=== PATIENT | female | born 1935 | race Caucasian/White ===

== ENCOUNTER 2019-09-22 17:05 | Emergency (ER) | payer MEDICARE, MEDICAID ==
[~2019-09-22] VITALS: Ht 162.6 cm; Wt 79.5 kg
[~2019-09-22 17:05] MED LIST: AMLO5TAB16 PO; ASPI81TA52 PO; ATOR20TA66 PO; CHOL10008 PO; CITA10TA9 PO; INSU100V12 SQ; LACT1CAP26 PO; LOSA50TA3 PO; METH1TAB32 PO; METO-384 PO; METO-395 PO
[2019-09-22] MEDS ORDERED: TETanus/Pertussis (Acell)/Diphther VAC/PF (Tdap-Adult) 0.5ml syringe IMVAC ONE (17:25)
--- NOTE | 2019-09-22 17:32 | NUR ---
Pt gave permission to give her grandson information about her care. He will also be the one who can come pick her up. His name is Donavan Max and his number is [phone].
--- NOTE | 2019-09-22 17:41 | NUR ---
Placed wet gauze on laceration to loosen up the scab per Dr Stover.
[2019-09-22 18:34] VITALS: BP 158/60
== END 2019-09-22 18:37 | disposition home or self-care (01) ==
LOC: ER 17:06
DX: S01.111A Laceration without foreign body of right eyelid and periocular area, initial encounter (principal); R51 Headache; Z91.81 History of falling; I10 Essential (primary) hypertension; E11.9 Type 2 diabetes mellitus without complications; F41.9 Anxiety disorder, unspecified; F32.9 Major depressive disorder, single episode, unspecified; Z90.49 Acquired absence of other specified parts of digestive tract; Z90.89 Acquired absence of other organs; Z98.890 Other specified postprocedural states; Z60.2 Problems related to living alone; Z86.73 Personal history of transient ischemic attack (TIA), and cerebral infarction without residual deficits; Z79.4 Long term (current) use of insulin; Z79.899 Other long term (current) drug therapy; W01.198A Fall on same level from slipping, tripping and stumbling with subsequent striking against other object, initial encounter; Y93.89 Activity, other specified; Y92.010 Kitchen of single-family (private) house as the place of occurrence of the external cause
CPT/HCPCS: 70450; 72125; 90471; 90715; 99285

== ENCOUNTER 2020-01-20 11:35 | Emergency (ER) | payer MEDICARE, MEDICAID ==
[~2020-01-20] VITALS: Ht 162.6 cm; Wt 71.9 kg
--- NOTE | 2020-01-20 11:58 | NUR ---
PT'S SERVICE LINE LAYER: SREEKANTH VALENTE FREEZEN: [phone]
--- NOTE | 2020-01-20 11:59 | NUR ---
PT'S TRANSPORTATION HOME WILL BE HER GRANDSONADALBERTO:[phone]; OR SON DARRIN:[phone]
[2020-01-20 12:43] LABS: ALANINE AMINOTRANSFERASE 82 U/L (12-78); ALBUMIN 3.5 G/DL (3.4-5.0); ALKALINE PHOSPHATASE 143 IU/L (46-116); ANION GAP 7 (8-16); ASPARTATE AMINO TRANSFERASE 14 U/L (10-37); BILIRUBIN,TOTAL 0.4 MG/DL (0.1-1.0); BLOOD UREA NITROGEN 27 MG/DL (7-18); BUN/CREATININE RATIO 13.1 (6.6-38.0); CALCIUM 9.3 MG/DL (8.5-10.1); CHLORIDE 105 MMOL/L (99-107); CREATININE 2.06 MG/DL (0.40-0.90); GLUCOSE 150 MG/DL (70-104); LIPASE 82 U/L (73-393); POTASSIUM 3.9 MMOL/L (3.5-5.1); SODIUM 143 MMOL/L (135-145); TOTAL CARBON DIOXIDE 31.4 MMOL/L (24-32); TOTAL PROTEIN 6.9 G/DL (6.4-8.2); eGFR 23 ML/MIN
[2020-01-20 13:49] LABS: BASOPHILS # (AUTO) 0.1 X10'3 (0-0.2); BASOPHILS % (AUTO) 0.7 % (0-1); EOSINOPHILS # (AUTO) 0.4 X10'3 (0-0.9); EOSINOPHILS % (AUTO) 5.5 % (0-6); HEMATOCRIT 36.6 % (35.0-45.0); HEMOGLOBIN 11.6 g/dl (12.0-16.0); LYMPHOCYTES # (AUTO) 0.6 X10'3 (1.1-4.8); LYMPHOCYTES % (AUTO) 8.1 % (21-51); MEAN CORPUSCULAR HEMOGLOBIN 27.3 PG (27.0-31.0); MEAN CORPUSCULAR HGB CONC 31.8 g/dL (33.0-36.5); MEAN CORPUSCULAR VOLUME 85.7 FL (78-98); MEAN PLATELET VOLUME 9.2 FL (7.4-10.4); MONOCYTES # (AUTO) 0.5 X10'3 (0-0.9); MONOCYTES % (AUTO) 6.6 % (2-12); NEUTROPHILS # (AUTO) 6.1 X10'3 (1.8-7.7); NEUTROPHILS % (AUTO) 79.1 % (42-75); PLATELET COUNT 230 X10'3 (140-440); RED BLOOD COUNT 4.26 X10'6 (4.20-5.60); RED CELL DISTRIBUTION WIDTH 15.9 % (11.5-14.5); WHITE BLOOD COUNT 7.8 X10'3 (4.5-11.0)
[2020-01-20 15:27] LABS: CLARITY,URINE SLIGHTLY CLOUDY (Clear); COLOR,URINE YELLOW (Yellow); GLUCOSE, URINE NEGATIVE (Neg); KETONES,URINE NEGATIVE (Neg); LEUKOCYTE ESTERASE ,URINE NEGATIVE (Neg); NITRITES, URINE NEGATIVE (Neg); OCCULT BLOOD,URINE NEGATIVE (Neg); PH,URINE 5.5 (4.8-8.0); PROTEIN,URINE TRACE mg/dl (Neg); UROBILINOGEN,URINE 0.2 E.U/dL (0.2-1.0)
[2020-01-20 15:28] LABS: UA COLLECTION TYPE STRAIGHT CATH
[2020-01-20 15:42] LABS: HYALINE CASTS 0-3 /LPF (NEGATIVE); MUCUS STRANDS FEW /LPF (Neg); SQUAMOUS EPITHELIAL CELL,UR FEW /LPF (FEW); TRANSITIONAL EPI CELLS,URINE FEW /HPF
[2020-01-20 15:43] LABS: BACTERIA,URINE NONE SEEN /HPF (Neg); RBC,URINE 0-2 /HPF (0-2); RENAL CELLS, URINE FEW /HPF; WBC,URINE 0-4 /HPF (0-4)
[2020-01-20 16:28] VITALS: BP 164/68
== END 2020-01-20 16:25 | disposition home or self-care (01) ==
LOC: ER 11:35
DX: N18.9 Chronic kidney disease, unspecified (principal); R51 Headache; R74.8 Abnormal levels of other serum enzymes; E72.9 Disorder of amino-acid metabolism, unspecified; R11.2 Nausea with vomiting, unspecified; R19.7 Diarrhea, unspecified; I10 Essential (primary) hypertension; E11.9 Type 2 diabetes mellitus without complications; F41.9 Anxiety disorder, unspecified; F32.9 Major depressive disorder, single episode, unspecified; Z86.73 Personal history of transient ischemic attack (TIA), and cerebral infarction without residual deficits; Z90.49 Acquired absence of other specified parts of digestive tract; Z90.89 Acquired absence of other organs; Z98.890 Other specified postprocedural states; Z79.4 Long term (current) use of insulin; Z79.899 Other long term (current) drug therapy
CPT/HCPCS: 36415; 70450; 80053; 81001; 83605; 83690; 84484; 85025; 93005; 99285

== ENCOUNTER → 2020-06-05 | Emergency (ER) | payer MEDICARE, MEDICAID ==
[~2020-06-05] VITALS: Ht 165.1 cm; Wt 66.0 kg
[~2020-06-05] MED LIST changes: -AMLO5TAB16 PO; +ASPI-611 PO; -ASPI81TA52 PO; -ATOR20TA66 PO; +ATOR40TA72 PO; -CITA10TA9 PO; +DILT180C66 PO; -LACT1CAP26 PO; +LEVO250T58 PO; +LINA5TAB4 PO; +LISI10TA4 PO; -LOSA50TA3 PO; -METO-384 PO; -METO-395 PO; +PANT40TA54 PO; +TRIA0.1232 PO; +normal saline 1000ml 1,000 ML IV ONE
[2020-06-05 17:21] LABS: BASOPHILS % (AUTO) 0.4 % (0-1); EOSINOPHILS # (AUTO) 0.5 X10'3 (0-0.9); EOSINOPHILS % (AUTO) 5.5 % (0-6); HEMATOCRIT 33.6 % (35.0-45.0); HEMOGLOBIN 10.8 g/dl (12.0-16.0); LYMPHOCYTES # (AUTO) 0.7 X10'3 (1.1-4.8); LYMPHOCYTES % (AUTO) 8.3 % (21-51); MEAN CORPUSCULAR HEMOGLOBIN 26.7 PG (27.0-31.0); MEAN CORPUSCULAR VOLUME 83.4 FL (78-98); MEAN PLATELET VOLUME 9.2 FL (7.4-10.4); MONOCYTES # (AUTO) 0.8 X10'3 (0-0.9); MONOCYTES % (AUTO) 8.6 % (2-12); NEUTROPHILS # (AUTO) 6.9 X10'3 (1.8-7.7); NEUTROPHILS % (AUTO) 77.2 % (42-75); PLATELET COUNT 205 X10'3 (140-440); RED BLOOD COUNT 4.03 X10'6 (4.20-5.60); RED CELL DISTRIBUTION WIDTH 15.4 % (11.5-14.5); WHITE BLOOD COUNT 8.9 X10'3 (4.5-11.0)
[2020-06-05 17:28] LABS: ALANINE AMINOTRANSFERASE 16 U/L (12-78); ALBUMIN/GLOBULIN RATIO 0.9 (1.1-1.5); ALKALINE PHOSPHATASE 89 IU/L (46-116); ANION GAP 11 (8-16); ASPARTATE AMINO TRANSFERASE 11 U/L (10-37); BILIRUBIN,TOTAL 0.3 MG/DL (0.1-1.0); BLOOD UREA NITROGEN 44 MG/DL (7-18); BUN/CREATININE RATIO 17.4 (6.6-38.0); CALCIUM 9.2 MG/DL (8.5-10.1); CHLORIDE 106 MMOL/L (99-107); CREATININE 2.53 MG/DL (0.40-0.90); GLUCOSE 113 MG/DL (70-104); POTASSIUM 3.6 MMOL/L (3.5-5.1); SODIUM 143 MMOL/L (135-145); TOTAL CARBON DIOXIDE 25.7 MMOL/L (24-32); TOTAL PROTEIN 6.5 G/DL (6.4-8.2); eGFR 18 ML/MIN
[2020-06-05 18:18] LABS: CLARITY,URINE SLIGHTLY CLOUDY (Clear); COLOR,URINE STRAW (Yellow); GLUCOSE, URINE NEGATIVE (Neg); KETONES,URINE NEGATIVE (Neg); LEUKOCYTE ESTERASE ,URINE NEGATIVE (Neg); NITRITES, URINE NEGATIVE (Neg); OCCULT BLOOD,URINE NEGATIVE (Neg); PH,URINE 5.5 (4.8-8.0); PROTEIN,URINE TRACE mg/dl (Neg); UROBILINOGEN,URINE 0.2 E.U/dL (0.2-1.0)
[2020-06-05 18:21] LABS: UA COLLECTION TYPE STRAIGHT CATH
[2020-06-05 18:24] LABS: HYALINE CASTS 0-3 /LPF (NEGATIVE); SQUAMOUS EPITHELIAL CELL,UR MODERATE /LPF (FEW)
[2020-06-05 18:25] LABS: MUCUS STRANDS NONE SEEN /LPF (Neg); RENAL CELLS, URINE FEW /HPF; TRANSITIONAL EPI CELLS,URINE FEW /HPF
[2020-06-05 18:26] LABS: AMORPHOUS URATES 1+; BACTERIA,URINE NONE SEEN /HPF (Neg); RBC,URINE 0-2 /HPF (0-2)
--- NOTE | 2020-06-05 20:24 | NUR ---
PER PA, PT TO STAY IN ER OVERNIGHT. WIRELESS SALES MANAGER AWARE AND WILL CONTACT CASE MANAGEMENT
[2020-06-05 21:16] VITALS: BP 150/52
--- NOTE | 2020-06-05 21:16 | NUR ---
PT PLACED ON HOSPITAL BED
--- NOTE | 2020-06-06 08:26 | NUR ---
Per Liseth in ER, son refuses to pick patient up from ER, spoke with son Fabricio, states that patient is unable to care for herself at home, she has become weaker since her discharge on 05-25-20 and is having difficulty walking, explained that I would refer patient to facilities for STC and did not guarantee that patient would be placed, if patient could not be placed then patient has been discharged and would need to go home, states if she is discharged then he would have to leave [facility] to pick her up and it would be a few hours
--- NOTE | 2020-06-06 08:30 | NUR ---
Referral to [facility], waiting for response
--- NOTE | 2020-06-06 09:57 | NUR ---
Patient has been accepted by [facility], orders faxed, waiting for transport time, notified son Fabricio
--- NOTE | 2020-06-06 11:00 | NUR ---
pt given small meal and needs checked. pt sated "I just want to go home"
--- NOTE | 2020-06-06 11:15 | NUR ---
pt informed she would be going to [place]. Pt in agreement to go
--- NOTE | 2020-06-06 11:40 | NUR ---
Transportation time 1400, notified primary nurse Liseth and son Fabricio
--- NOTE | 2020-06-06 12:44 | NUR ---
CALLED PT'S SON TO ASK HIM TO BRING HER CLOTHES AND HER MEDICATIONS PER PT. REQUEST. SON, DARRIN, AGREED TO TAKE THEM TO [facility] AFTER 1430 TODAY.
== END | disposition home or self-care (01) ==
LOC: ER 16:30
DX: E86.0 Dehydration (principal); I10 Essential (primary) hypertension; E11.9 Type 2 diabetes mellitus without complications; F41.9 Anxiety disorder, unspecified; F32.9 Major depressive disorder, single episode, unspecified; Z86.73 Personal history of transient ischemic attack (TIA), and cerebral infarction without residual deficits; Z87.440 Personal history of urinary (tract) infections; Z90.89 Acquired absence of other organs; Z90.49 Acquired absence of other specified parts of digestive tract; Z98.890 Other specified postprocedural states; Z60.2 Problems related to living alone; Z79.82 Long term (current) use of aspirin; Z79.899 Other long term (current) drug therapy
CPT/HCPCS: 36415; 80053; 81001; 82948; 85025; 87088; 93005; 96360; 99284; J7030

== ENCOUNTER 2020-07-28 09:15 | Outpatient (CLI) | payer MEDICARE, MEDICAID ==
[~2020-07-28 09:15] MED LIST changes: -LEVO250T58 PO; +LISI10TA27 PO; -LISI10TA4 PO; -normal saline 1000ml 1,000 ML IV ONE
== END 2020-07-28 23:59 | disposition home or self-care (01) ==
LOC: 64 CT 09:15
PROVIDERS: ATTEND Family Medicine
DX: I70.0 Atherosclerosis of aorta (principal); R63.4 Abnormal weight loss; Z90.49 Acquired absence of other specified parts of digestive tract; Z90.710 Acquired absence of both cervix and uterus; Z85.42 Personal history of malignant neoplasm of other parts of uterus
CPT/HCPCS: 74176

== ENCOUNTER 2020-12-27 09:05 | Day surgery (SDC) | payer MEDICARE, MEDICAID ==
[~2020-12-27] VITALS: Ht 162.6 cm; Wt 63.6 kg
[2020-12-27 09:18] VITALS: BP 162/88
[2020-12-27] MEDS ORDERED: fentaNYL/PF 50MCG/1 ML 2ML syringe ONE (09:20)
[2020-12-27] MEDS ORDERED: MIDAZolam 1 MG/ML 5ML VIAL ONE (09:21)
[2020-12-27] MEDS ORDERED: LIDOcaine Viscous 15ml cup ONE (09:21)
[2020-12-27 09:44] VITALS: BP 176/72
[2020-12-27 09:54] VITALS: BP 154/70
[2020-12-27 10:04] VITALS: BP 157/63
[2020-12-27 10:14] VITALS: BP 162/68
== END 2020-12-27 10:30 | disposition home or self-care (01) ==
LOC: GI LAB 09:05
PROVIDERS: ATTEND Internal Medicine Gastroenterology
DX: R13.10 Dysphagia, unspecified (principal); K22.2 Esophageal obstruction; K44.9 Diaphragmatic hernia without obstruction or gangrene; K31.89 Other diseases of stomach and duodenum; I10 Essential (primary) hypertension; E11.9 Type 2 diabetes mellitus without complications; E66.9 Obesity, unspecified; Z68.24 Body mass index [BMI] 24.0-24.9, adult; Z87.891 Personal history of nicotine dependence; Z86.19 Personal history of other infectious and parasitic diseases; Z86.73 Personal history of transient ischemic attack (TIA), and cerebral infarction without residual deficits; Z79.82 Long term (current) use of aspirin; Z79.899 Other long term (current) drug therapy
CPT/HCPCS: 43249; C1726; J2250; J3010; J7040; Z7512; 99152; A4620

== ENCOUNTER 2021-01-01 09:55 | Emergency (ER) | payer MEDICARE, MEDICAID ==
[~2021-01-01] VITALS: Ht 160 cm; Wt 140.0 kg
[~2021-01-01 09:55] MED LIST changes: -INSU100V12 SQ
[2021-01-01 11:45] VITALS: BP 194/84
--- NOTE | 2021-01-01 11:48 | NUR ---
notified of elevated bp prior to dishcharge, instructed patient to take bp meds she skipped once home
== END 2021-01-01 12:07 | disposition home or self-care (01) ==
LOC: ER 09:55
DX: M25.561 Pain in right knee (principal); M25.562 Pain in left knee; M54.5 Low back pain; I10 Essential (primary) hypertension; E11.9 Type 2 diabetes mellitus without complications; Z86.73 Personal history of transient ischemic attack (TIA), and cerebral infarction without residual deficits; Z87.440 Personal history of urinary (tract) infections; Z90.49 Acquired absence of other specified parts of digestive tract; Z79.82 Long term (current) use of aspirin; Z79.899 Other long term (current) drug therapy; Z79.4 Long term (current) use of insulin; W19.XXXA Unspecified fall, initial encounter; Y93.89 Activity, other specified; Y92.89 Other specified places as the place of occurrence of the external cause; Y99.8 Other external cause status
CPT/HCPCS: 99284

== ENCOUNTER 2021-10-22 07:17 | Inpatient (IN) | payer MEDICARE, MEDICAID ==
[2021-10-22] VITALS (14 sets, daily range): BP systolic 129–167; BP diastolic 51–74
[~2021-10-22] VITALS: Ht 162.6 cm; Wt 63.6 kg
[2021-10-22 08:09] LABS: BASOPHILS % (AUTO) 0.4 % (0-1); EOSINOPHILS # (AUTO) 0.2 X10'3 (0-0.9); EOSINOPHILS % (AUTO) 2.3 % (0-6); HEMATOCRIT 35.9 % (35.0-45.0); LYMPHOCYTES # (AUTO) 0.5 X10'3 (1.1-4.8); LYMPHOCYTES % (AUTO) 4.9 % (21-51); MEAN CORPUSCULAR HGB CONC 33.3 g/dL (33.0-36.5); MEAN CORPUSCULAR VOLUME 87.1 FL (78-98); MEAN PLATELET VOLUME 9.1 FL (7.4-10.4); MONOCYTES # (AUTO) 0.3 X10'3 (0-0.9); MONOCYTES % (AUTO) 3.7 % (2-12); NEUTROPHILS # (AUTO) 8.3 X10'3 (1.8-7.7); NEUTROPHILS % (AUTO) 88.7 % (42-75); PLATELET COUNT 183 X10'3 (140-440); RED BLOOD COUNT 4.13 X10'6 (4.20-5.60); RED CELL DISTRIBUTION WIDTH 15.2 % (11.5-14.5); WHITE BLOOD COUNT 9.4 X10'3 (4.5-11.0)
[2021-10-22] MEDS ORDERED: ondansetron/PF 4mg/2ml inj IV ONE (08:15)
[2021-10-22] MEDS: morphine 4 MG/ML inj SYRINge IV PRN ×2 (08:22→12:03)
[2021-10-22 08:33] LABS: ALANINE AMINOTRANSFERASE 113 U/L (12-78); ALBUMIN 3.1 G/DL (3.4-5.0); ALKALINE PHOSPHATASE 128 IU/L (46-116); ANION GAP 9 (8-16); ASPARTATE AMINO TRANSFERASE 76 U/L (10-37); BILIRUBIN,TOTAL 0.4 MG/DL (0.1-1.0); BLOOD UREA NITROGEN 31 MG/DL (7-18); BUN/CREATININE RATIO 19.3 (6.6-38.0); CALCIUM 8.8 MG/DL (8.5-10.1); CHLORIDE 108 MMOL/L (99-107); CREATININE 1.61 MG/DL (0.40-0.90); GLUCOSE 149 MG/DL (70-104); POTASSIUM 3.9 MMOL/L (3.5-5.1); SODIUM 144 MMOL/L (135-145); TOTAL CARBON DIOXIDE 27.2 MMOL/L (24-32); TOTAL PROTEIN 6.3 G/DL (6.4-8.2); eGFR 30 ML/MIN
[2021-10-22 08:58] LABS: APTT 28 SECONDS (22-32)
[2021-10-22 09:55] LABS: CLARITY,URINE CLOUDY (Clear); COLOR,URINE YELLOW (Yellow); GLUCOSE, URINE NEGATIVE (Neg); KETONES,URINE NEGATIVE (Neg); LEUKOCYTE ESTERASE ,URINE MODERATE (Neg); NITRITES, URINE POSITIVE (Neg); OCCULT BLOOD,URINE MODERATE (Neg); PH,URINE 5.5 (4.8-8.0); PROTEIN,URINE 100 mg/dl (Neg); UROBILINOGEN,URINE 0.2 E.U/dL (0.2-1.0)
[2021-10-22] MEDS ORDERED: HYDROmorphone/PF 0.2 MG/ML SYRINGE IV PRN (10:05)
[2021-10-22] MEDS ORDERED: bisacodyl 10mg suppository rectal RC PRN (10:05)
[2021-10-22] MEDS ORDERED: HYDROcodone/acetaminophen 10/325mg tab PO PRN (10:05)
[2021-10-22] MEDS ORDERED: mag hydrox/Alum hydrox/simeth 30ml oral suspension PO PRN (10:05)
[2021-10-22] MEDS: normal saline 1000ml 1,000 ML IV SCH ×2 (10:05→23:37)
[2021-10-22] MEDS ORDERED: acetaminophen 650mg rectal suppository RC PRN (10:05)
[2021-10-22] MEDS ORDERED: HYDROmorphone inj. 0.5 MG/0.5 ML DISP.SYRIN IV PRN (10:05)
[2021-10-22] MEDS ORDERED: magnesium 4gm in 100ml NS 100 ML IV PRN (10:05)
[2021-10-22] MEDS ORDERED: ondansetron/PF 4mg/2ml inj IV PRN ×2 (10:05→16:10)
[2021-10-22] MEDS ORDERED: magnesium 2GM in 50ml NS 50 ML IV PRN (10:05)
[2021-10-22] MEDS ORDERED: potassium CL 10mEq/100ml bag 100 ML IV PRN (10:05)
[2021-10-22] MEDS ORDERED: ondansetron 4mg rapidly disintigrating tab PO PRN (10:05)
[2021-10-22] MEDS ORDERED: magnesium Cl slow-release 64mg tablet PO PRN (10:05)
[2021-10-22] MEDS ORDERED: POTASSIUM BICARB 20meq eff tab 20 MEQ TABLET.EFF PO PRN ×2 (10:05)
[2021-10-22] MEDS ORDERED: magnesium hydroxide 30ml (MOM) UD suspension PO PRN (10:05)
[2021-10-22] MEDS ORDERED: acetaminophen 325mg tablet PO PRN ×2 (10:05)
[2021-10-22 10:06] LABS: UA COLLECTION TYPE STRAIGHT CATH
[2021-10-22 10:08] LABS: BACTERIA,URINE 4+ /HPF (Neg); RBC,URINE 0-2 /HPF (0-2); SQUAMOUS EPITHELIAL CELL,UR FEW /LPF (FEW); WBC,URINE TNTC /HPF (0-4)
[2021-10-22 10:48] LABS: MAGNESIUM 1.6 MG/DL (1.5-2.4); POTASSIUM 4.2 MMOL/L (3.5-5.1)
[2021-10-22] MEDS ORDERED: FERR325T29 PO (12:35)
[2021-10-22] MEDS ORDERED: AMIT25TA9 PO (12:35)
[2021-10-22] MEDS ORDERED: LISI5TAB22 PO (12:35)
[2021-10-22] MEDS ORDERED: DILT-36 PO (12:36)
--- NOTE | 2021-10-22 14:57 | NUR ---
[facility] COFFMAN [phone] Addendum: 10/22/21 at 1458 by Maira Barakat RN RN Amended: Links added.
[2021-10-22] MEDS ORDERED: proCHLORperazine 10 MG/2 ml inj IV PRN (16:10)
[2021-10-22] MEDS ORDERED: meperidine/PF 25mg/ml syringe IV PRN ×3 (16:10)
[2021-10-22] MEDS ORDERED: morphine 2 MG/ML inj. syringe IV PRN (16:10)
[2021-10-22] MEDS ORDERED: ringers solution, lacted 1,000 ML IV SCH (16:10)
[2021-10-22] MEDS ORDERED: morphine 4 MG/ML inj SYRINge IV PRN (16:10)
[2021-10-22] MEDS: cefTRIAXone 1g/NS 100ml IVPB 100 ML IV SCH (16:15)
[2021-10-22] MEDS ORDERED: fentaNYL/PF 50MCG/1 ML 2ML syringe ONE (18:18)
[2021-10-22] MEDS ORDERED: midazolam 1 mg/ML 2ml injection ONE (18:18)
[2021-10-22] MEDS ORDERED: ceFAZolin 1000mg inj ONE (18:44)
--- NOTE | 2021-10-22 19:13 | NUR ---
Received from OR via bed , accompanied by Anesthesiologist and report given by Dr. Koch Anesthesiolgist. Patient waking up, denies pain, VSS, neurovascular checks intact, scd on, 20g piv to left wrist, dressing to left hip is clean, dry, intact. Way catheter drain via gravity with cloudy and sendiment yellow urine. Patient unable to state dermatome level at this time. Will continue to assess. Addendum: 10/22/21 at 1935 by Joe Ronquillo RN Amended: Links added.
[2021-10-22] MEDS ORDERED: enoxaparin 40mg/0.4ml syringe SUBCUT SCH (20:00)
[2021-10-22] MEDS: K and/or MAG REPLACEMENT MC SCH (20:00)
--- NOTE | 2021-10-22 20:13 | NUR ---
PATIENT HAS MET ALL CRITERIA FOR TRANSFER TO ORTHO FLOOR. VSS. DRESSINGS INTACT. BED LOW, CALL LIGHT PRESENT AND 2 RAILS UP. RN PRESENT TO ACCEPT CARE OF PATIENT AND REPORT HAS BEEN CALLED. ALL QUESTIONS ANSWERED TO ACCEPTING RN. Addendum: 10/22/21 at 2023 by Joe Ronquillo RN Amended: Links added.
[2021-10-22] MEDS: docusate sod 100mg capsule PO SCH (20:50)
[2021-10-22 20:57] LABS: HEMOGLOBIN A1C 6.1 % (4.5-6.2)
[2021-10-22] MEDS ORDERED: temazepam 15mg capsule PO PRN (21:00)
[2021-10-22] MEDS: HYDROcodone/acetaminophen 5mg/325mg tablet PO PRN (21:01)
[2021-10-22] MEDS: amitriptyline 25mg tablet PO SCH (23:46)
[2021-10-23] VITALS (7 sets, daily range): BP systolic 129–178; BP diastolic 55–66
--- NOTE | 2021-10-23 06:29 | NUR ---
Problems reprioritized. Patient report given, questions answered & plan of care reviewed with CHUY MITCHELL.
--- NOTE | 2021-10-23 06:51 | NUR ---
Patient in room ORTHO 4009B. I have received report from CHUY MORALES and had the opportunity to ask questions and assume patient care.
[2021-10-23 06:59] LABS: BASOPHILS % (AUTO) 0.4 % (0-1); EOSINOPHILS # (AUTO) 0.3 X10'3 (0-0.9); EOSINOPHILS % (AUTO) 4.1 % (0-6); HEMATOCRIT 31.2 % (35.0-45.0); HEMOGLOBIN 10.3 g/dl (12.0-16.0); LYMPHOCYTES # (AUTO) 0.3 X10'3 (1.1-4.8); LYMPHOCYTES % (AUTO) 3.5 % (21-51); MEAN CORPUSCULAR HEMOGLOBIN 29.1 PG (27.0-31.0); MEAN CORPUSCULAR HGB CONC 33.1 g/dL (33.0-36.5); MEAN CORPUSCULAR VOLUME 87.8 FL (78-98); MEAN PLATELET VOLUME 9.3 FL (7.4-10.4); MONOCYTES # (AUTO) 0.4 X10'3 (0-0.9); MONOCYTES % (AUTO) 4.5 % (2-12); NEUTROPHILS # (AUTO) 6.9 X10'3 (1.8-7.7); NEUTROPHILS % (AUTO) 87.5 % (42-75); PLATELET COUNT 149 X10'3 (140-440); RED BLOOD COUNT 3.56 X10'6 (4.20-5.60); RED CELL DISTRIBUTION WIDTH 15.1 % (11.5-14.5); WHITE BLOOD COUNT 7.9 X10'3 (4.5-11.0)
[2021-10-23 07:12] LABS: ALANINE AMINOTRANSFERASE 506 U/L (12-78); ALBUMIN 2.3 G/DL (3.4-5.0); ALBUMIN/GLOBULIN RATIO 0.9 (1.1-1.5); ALKALINE PHOSPHATASE 151 IU/L (46-116); ANION GAP 8 (8-16); ASPARTATE AMINO TRANSFERASE 299 U/L (10-37); BILIRUBIN,TOTAL 0.6 MG/DL (0.1-1.0); BLOOD UREA NITROGEN 24 MG/DL (7-18); BUN/CREATININE RATIO 18.5 (6.6-38.0); CALCIUM 8.3 MG/DL (8.5-10.1); CHLORIDE 111 MMOL/L (99-107); GLUCOSE 167 MG/DL (70-104); MAGNESIUM 1.4 MG/DL (1.5-2.4); POTASSIUM 4.1 MMOL/L (3.5-5.1); SODIUM 144 MMOL/L (135-145); TOTAL CARBON DIOXIDE 25.4 MMOL/L (24-32); eGFR 39 ML/MIN
[2021-10-23] MEDS: K and/or MAG REPLACEMENT MC SCH ×2 (08:00→20:00)
[2021-10-23] MEDS ORDERED: methenamine hippurate 1gm tablet PO SCH (08:00)
[2021-10-23] MEDS ORDERED: linagliptin 5mg tablet PO SCH (08:00)
[2021-10-23] MEDS ORDERED: enoxaparin 40mg/0.4ml syringe SUBCUT SCH (08:00)
--- NOTE | 2021-10-23 08:36 | NUR ---
Cardiac diet consult: Noted pt w/ hx of HTN and hyperlipidemia. Written heart healthy diet ed w/ RD contact info placed in pt chart. Pt also hx of DM per EMR A1c 6.1 well controlled and appropriate, DM ed not indicated. Addendum: 10/23/21 at [address] Amended: Links added.
[2021-10-23] MEDS: ferrous sulfate 325mg tablet PO SCH (09:51)
[2021-10-23] MEDS: docusate sod 100mg capsule PO SCH ×2 (09:51→20:47)
[2021-10-23] MEDS: pantoprazole 40mg Tablet.DR PO SCH (09:51)
[2021-10-23] MEDS: diltiazem CD 180mg cap (once-daily) PO SCH (09:51)
[2021-10-23] MEDS: lisinopril 5mg tablet PO SCH (09:51)
[2021-10-23] MEDS: cefTRIAXone 1g/NS 100ml IVPB 100 ML IV SCH (09:52)
--- NOTE | 2021-10-23 11:46 | NUR ---
CAN NOT GIVE METHENAMINE HIPPURATE 1GM TAB BECAUSE IT IS NOT STOCKED
[2021-10-23] MEDS: normal saline 1000ml 1,000 ML IV SCH (14:05)
--- NOTE | 2021-10-23 18:38 | NUR ---
MESSAGE: 6139B AI COFFMAN, HIP FX. HER BP HAS BEEN HIGH ALL DAY. CURRENTLY 178/66 HR 104. WOULD YOU LIKE TO ADD SOMETHING? SHE IS ONLY TAKING BP MEDS IN AM. THANK YOU. 0945 ANDREW
[2021-10-23] MEDS ORDERED: hydrALAZINE 20mg/ml inj. IV PRN (19:00)
--- NOTE | 2021-10-23 19:28 | NUR ---
Problems reprioritized. Patient report given, questions answered & plan of care reviewed with CHUY MORALES.
[2021-10-23] MEDS: HYDROcodone/acetaminophen 5mg/325mg tablet PO PRN (20:48)
[2021-10-23] MEDS: amitriptyline 25mg tablet PO SCH (20:48)
[2021-10-24] MEDS: normal saline 1000ml 1,000 ML IV SCH ×2 (01:30→12:05)
[2021-10-24 04:51] LABS: BASOPHILS % (AUTO) 0.4 % (0-1); EOSINOPHILS # (AUTO) 0.4 X10'3 (0-0.9); EOSINOPHILS % (AUTO) 6.7 % (0-6); HEMATOCRIT 27.7 % (35.0-45.0); HEMOGLOBIN 9.1 g/dl (12.0-16.0); LYMPHOCYTES # (AUTO) 0.5 X10'3 (1.1-4.8); LYMPHOCYTES % (AUTO) 8.6 % (21-51); MEAN CORPUSCULAR HEMOGLOBIN 28.8 PG (27.0-31.0); MEAN CORPUSCULAR HGB CONC 32.7 g/dL (33.0-36.5); MEAN CORPUSCULAR VOLUME 88.1 FL (78-98); MEAN PLATELET VOLUME 9.1 FL (7.4-10.4); MONOCYTES # (AUTO) 0.5 X10'3 (0-0.9); MONOCYTES % (AUTO) 8.9 % (2-12); NEUTROPHILS # (AUTO) 4.6 X10'3 (1.8-7.7); NEUTROPHILS % (AUTO) 75.4 % (42-75); PLATELET COUNT 127 X10'3 (140-440); RED BLOOD COUNT 3.15 X10'6 (4.20-5.60); RED CELL DISTRIBUTION WIDTH 15.2 % (11.5-14.5); WHITE BLOOD COUNT 6.1 X10'3 (4.5-11.0)
[2021-10-24 05:01] LABS: ALANINE AMINOTRANSFERASE 254 U/L (12-78); ALBUMIN/GLOBULIN RATIO 0.7 (1.1-1.5); ALKALINE PHOSPHATASE 114 IU/L (46-116); ANION GAP 12 (8-16); ASPARTATE AMINO TRANSFERASE 66 U/L (10-37); BILIRUBIN,TOTAL 0.4 MG/DL (0.1-1.0); BLOOD UREA NITROGEN 25 MG/DL (7-18); BUN/CREATININE RATIO 19.4 (6.6-38.0); CALCIUM 8.5 MG/DL (8.5-10.1); CHLORIDE 112 MMOL/L (99-107); CREATININE 1.29 MG/DL (0.40-0.90); GLUCOSE 123 MG/DL (70-104); MAGNESIUM 1.6 MG/DL (1.5-2.4); POTASSIUM 3.7 MMOL/L (3.5-5.1); SODIUM 147 MMOL/L (135-145); TOTAL CARBON DIOXIDE 23.3 MMOL/L (24-32); TOTAL PROTEIN 4.8 G/DL (6.4-8.2); eGFR 39 ML/MIN
[2021-10-24] MEDS: HYDROcodone/acetaminophen 5mg/325mg tablet PO PRN ×2 (05:34→10:39)
[2021-10-24 06:00] VITALS: BP 150/58
--- NOTE | 2021-10-24 06:33 | NUR ---
Patient in room ORTHO 4009. I have received report from Sana VERA and had the opportunity to ask questions and assume patient care.
--- NOTE | 2021-10-24 06:37 | NUR ---
Problems reprioritized. Patient report given, questions answered & plan of care reviewed with nicole Perez.
[2021-10-24] MEDS ORDERED: enoxaparin 30mg/0.3ml syringe SUBCUT SCH (08:00)
[2021-10-24] MEDS: K and/or MAG REPLACEMENT MC SCH (08:00)
[2021-10-24] MEDS: diltiazem CD 180mg cap (once-daily) PO SCH (08:02)
[2021-10-24] MEDS: ferrous sulfate 325mg tablet PO SCH (08:02)
[2021-10-24] MEDS: pantoprazole 40mg Tablet.DR PO SCH (08:02)
[2021-10-24] MEDS: docusate sod 100mg capsule PO SCH (08:03)
[2021-10-24] MEDS: lisinopril 5mg tablet PO SCH (08:03)
[2021-10-24] MEDS: cefTRIAXone 1g/NS 100ml IVPB 100 ML IV SCH (08:04)
[2021-10-24] MEDS ORDERED: methenamine hippurate 1gm tablet PO SCH (08:20)
[2021-10-24 10:00] VITALS: BP 157/57
[2021-10-24] MEDS ORDERED: amitriptyline 50mg tablet PO SCH (10:00)
--- NOTE | 2021-10-24 11:12 | NUR ---
Page Sent PAGER ID: [phone] MESSAGE: [address], do you want pt collins out before discharge to [facility]? its a protocol b collins so I can not dc without order. thanks yasmin [phone]
--- NOTE | 2021-10-24 11:16 | NUR ---
per Dr Jose, he wants the pt to be discharged with [facility].
--- NOTE | 2021-10-24 12:48 | NUR ---
Problems reprioritized. Patient report given, questions answered & plan of care reviewed with Talya at [facility].
--- NOTE | 2021-10-24 13:22 | NUR ---
while transferring pt to get ready for discharge her right elbow got a skin tear and pt seemed more confused when she got back into bed then during this AM assessment, pt does have a history of dementia. I called Talya at [facility] and notified her of the changes I had noticed. pictures of wound in chart and Opti foam applied.
--- NOTE | 2021-10-24 13:34 | NUR ---
Talya at [facility] asked if family could picker feeder pts [employer]donald and cards for her. i discussed with pt she said her son could come pick them up for her. I called son he will be coming to picker feeder pts things from [facility] later today.
--- NOTE | 2021-10-24 14:26 | NUR ---
pt is stable for discharge, pt iv was dc and cannula intact, all belongings and paperwork given to [facility] personnel, pt belongings slip for the safe was given to [facility] personnel to get and sign for while pt is leaving the hospital, report was called to [facility]PA, son was made aware of the pts transfer and that her belongings in safe would be there safe for brain picker. pt was wheeled down on gurney by [facility] personnel and left in a [facility] van.
[2021-10-24 14:27] LABS: HBSAG SCREEN Negative (Negative); HEP A AB, IGM Negative (Negative)
== END 2021-10-24 14:25 | DRG 480 ==
LOC: ER 07:17 → ED HOLD 10:09 → UNDOADMIN 10:09 → ED HOLD 12:58 → ORTHO 4S 19:58
PROVIDERS: ADMIT Family Medicine; ATTEND Family Medicine
PROC: 0QS706Z Reposition Left Upper Femur with Intramedullary Internal Fixation Device, Open Approach (ICD-10-PCS; principal; 2021-10-22 18:10)
DX: S72.142A Displaced intertrochanteric fracture of left femur, initial encounter for closed fracture (principal); N17.0 Acute kidney failure with tubular necrosis; E87.0 Hyperosmolality and hypernatremia; N39.0 Urinary tract infection, site not specified; N18.4 Chronic kidney disease, stage 4 (severe); Z20.822 Contact with and (suspected) exposure to COVID-19; Z66 Do not resuscitate; E11.22 Type 2 diabetes mellitus with diabetic chronic kidney disease; E78.5 Hyperlipidemia, unspecified; W01.0XXA Fall on same level from slipping, tripping and stumbling without subsequent striking against object, initial encounter; F41.9 Anxiety disorder, unspecified; D64.9 Anemia, unspecified; Z60.2 Problems related to living alone; R74.01 Elevation of levels of liver transaminase levels; E83.42 Hypomagnesemia; B96.20 Unspecified Escherichia coli [E. coli] as the cause of diseases classified elsewhere; E88.09 Other disorders of plasma-protein metabolism, not elsewhere classified; F32.A Depression, unspecified; I12.9 Hypertensive chronic kidney disease with stage 1 through stage 4 chronic kidney disease, or unspecified chronic kidney disease; Z79.82 Long term (current) use of aspirin; Z86.73 Personal history of transient ischemic attack (TIA), and cerebral infarction without residual deficits; Z90.49 Acquired absence of other specified parts of digestive tract; Z90.710 Acquired absence of both cervix and uterus; Y93.89 Activity, other specified; Y92.89 Other specified places as the place of occurrence of the external cause; Y99.8 Other external cause status; Z79.899 Other long term (current) drug therapy
CPT/HCPCS: 36415; 71045; 73030; 73502; 73551; 73600; 76000; 76700; 80053; 80074; 81001; 82948; 83036; 83735; 83880; 84132; 84484; 85025; 85610; 85730; 86885; 86900; 86901; 87077; 87081; 87088; 87186; 87635; 92508; 92616; 96374; 96375; 97162; 97530; 97535; 99285; A4314; A4615; A6212; A7000; C1713; G0378; J0690; J0696; J1170; J1650; J2250; J2270; J2405; J3010; J7030; J7120

== ENCOUNTER 2021-10-28 11:35 | Emergency (ER) | payer MEDICARE, MEDICAID ==
[~2021-10-28] VITALS: Ht 165.1 cm; Wt 65.9 kg
[~2021-10-28 11:35] MED LIST changes: +AMIT25TA9 PO; -ASPI-611 PO; -CHOL10008 PO; +DILT-36 PO; -DILT180C66 PO; +FERR325T29 PO; -LISI10TA27 PO; +LISI5TAB22 PO; -TRIA0.1232 PO
[2021-10-28 12:40] LABS: BASOPHILS % (AUTO) 0.3 % (0-1); EOSINOPHILS # (AUTO) 0.3 X10'3 (0-0.9); EOSINOPHILS % (AUTO) 3.9 % (0-6); HEMATOCRIT 27.7 % (35.0-45.0); LYMPHOCYTES # (AUTO) 0.5 X10'3 (1.1-4.8); LYMPHOCYTES % (AUTO) 7.7 % (21-51); MEAN CORPUSCULAR HEMOGLOBIN 28.2 PG (27.0-31.0); MEAN CORPUSCULAR HGB CONC 32.6 g/dL (33.0-36.5); MEAN CORPUSCULAR VOLUME 86.6 FL (78-98); MEAN PLATELET VOLUME 9.5 FL (7.4-10.4); MONOCYTES # (AUTO) 0.6 X10'3 (0-0.9); MONOCYTES % (AUTO) 9.2 % (2-12); NEUTROPHILS # (AUTO) 5.5 X10'3 (1.8-7.7); NEUTROPHILS % (AUTO) 78.9 % (42-75); PLATELET COUNT 162 X10'3 (140-440); RED CELL DISTRIBUTION WIDTH 14.9 % (11.5-14.5)
[2021-10-28 12:44] LABS: URINE AMPHETAMINE SCREEN NEGATIVE (Neg); URINE BARBITUATE SCREEN NEGATIVE (Neg); URINE BENZODIAZEPINES SCREEN NEGATIVE (Neg); URINE CANNABINOID SCREEN NEGATIVE (Neg); URINE COCAINE SCREEN NEGATIVE (Neg); URINE METHADONE SCREEN NEGATIVE (Neg); URINE OPIATE SCREEN POSITIVE (Neg); URINE PHENCYCLIDINE SCREEN NEGATIVE (Neg)
[2021-10-28 12:45] LABS: ALANINE AMINOTRANSFERASE 51 U/L (12-78); ALBUMIN 2.1 G/DL (3.4-5.0); ALBUMIN/GLOBULIN RATIO 0.6 (1.1-1.5); ALKALINE PHOSPHATASE 87 IU/L (46-116); ANION GAP 9 (8-16); ASPARTATE AMINO TRANSFERASE 13 U/L (10-37); BILIRUBIN,TOTAL 0.5 MG/DL (0.1-1.0); BLOOD UREA NITROGEN 29 MG/DL (7-18); BUN/CREATININE RATIO 22.5 (6.6-38.0); CALCIUM 8.9 MG/DL (8.5-10.1); CHLORIDE 110 MMOL/L (99-107); CREATININE 1.29 MG/DL (0.40-0.90); GLUCOSE 124 MG/DL (70-104); SODIUM 147 MMOL/L (135-145); TOTAL CARBON DIOXIDE 27.7 MMOL/L (24-32); TOTAL PROTEIN 5.5 G/DL (6.4-8.2); eGFR 39 ML/MIN
--- NOTE | 2021-10-28 14:01 | NUR ---
dr. aguayo at bedside.
[2021-10-28 14:28] LABS: CLARITY,URINE CLEAR (Clear); COLOR,URINE YELLOW (Yellow); GLUCOSE, URINE NEGATIVE (Neg); KETONES,URINE NEGATIVE (Neg); LEUKOCYTE ESTERASE ,URINE NEGATIVE (Neg); NITRITES, URINE NEGATIVE (Neg); OCCULT BLOOD,URINE NEGATIVE (Neg); PH,URINE 5.5 (4.8-8.0); PROTEIN,URINE 100 mg/dl (Neg); UROBILINOGEN,URINE 0.2 E.U/dL (0.2-1.0)
[2021-10-28 14:31] LABS: UA COLLECTION TYPE FOLEY CATH
[2021-10-28 14:37] LABS: BACTERIA,URINE FEW /HPF (Neg); FINE GRANULAR CAST 0-3 /LPF (NEGATIVE); MUCUS STRANDS FEW /LPF (Neg); RBC,URINE NONE SEEN /HPF (0-2); SQUAMOUS EPITHELIAL CELL,UR NONE SEEN /LPF (FEW); WBC,URINE 0-4 /HPF (0-4)
[2021-10-28] MEDS ORDERED: normal saline 1000ml 1,000 ML IV ONE (14:50)
--- NOTE | 2021-10-28 18:18 | NUR ---
telephone report to dionicio nurse at [facility].
[2021-10-28 18:19] VITALS: BP 188/92
== END 2021-10-28 18:58 | disposition home or self-care (01) ==
LOC: ER 11:35
DX: R41.82 Altered mental status, unspecified (principal); E86.0 Dehydration; D50.0 Iron deficiency anemia secondary to blood loss (chronic); F11.90 Opioid use, unspecified, uncomplicated; R53.83 Other fatigue; I10 Essential (primary) hypertension; E11.9 Type 2 diabetes mellitus without complications; F41.9 Anxiety disorder, unspecified; F32.A Depression, unspecified; Z86.73 Personal history of transient ischemic attack (TIA), and cerebral infarction without residual deficits; Z87.440 Personal history of urinary (tract) infections; Z85.9 Personal history of malignant neoplasm, unspecified; Z90.89 Acquired absence of other organs; Z90.49 Acquired absence of other specified parts of digestive tract; Z98.890 Other specified postprocedural states; Z60.2 Problems related to living alone; Z79.899 Other long term (current) drug therapy
CPT/HCPCS: 36415; 70450; 80053; 80305; 81001; 85025; 96360; 99284; J7030